=== PATIENT | male | born 1965 | race Caucasian/White ===

== ENCOUNTER → 2022-02-15 09:22 | Outpatient (BNVA) | payer OTHER, SELFPAY | PROVIDERS: Family Provider Physician Assistant Medical; PCP Family Medicine; Referring Provider Registered Nurse; Visit Provider Podiatrist Foot & Ankle Surgery | DX: M72.2 Plantar fascial fibromatosis (principal) | CPT/HCPCS: 73630 ==

== ENCOUNTER 2024-03-05 11:47 | Outpatient (CLI) | payer OTHER, SELFPAY ==
--- NOTE | 2024-03-05 11:50 | US_ITS ---
WS: [id number] ULTRASOUND RIGHT BREAST HISTORY: HISTROY OF MELANOMA COMPARISON: None available. TECHNIQUE: 2-D and Doppler. Ultrasound directed over the RIGHT breast as indicated by the patient in multiple areas. There are no masses identified. No distortion or fluid. US/US breast RT limited* [id number] IMPRESSION: BI-RADS: 1 - Negative. FOLLOW-UP: See Report No additional imaging necessary.
== END 2024-03-05 11:48 | disposition home or self-care (01) ==
LOC: RAD 11:48
PROVIDERS: Family Provider Physician Assistant Medical; PCP Family Medicine; Visit Provider Registered Nurse
DX: N64.4 Mastodynia (principal); Z85.820 Personal history of malignant melanoma of skin
CPT/HCPCS: 76642

== ENCOUNTER → 2024-03-13 12:38 | Outpatient (BNVA) | payer OTHER, SELFPAY | PROVIDERS: Family Provider Physician Assistant Medical; PCP Family Medicine; Visit Provider Orthopaedic Surgery | DX: M54.2 Cervicalgia (principal) | CPT/HCPCS: 72050 ==

== ENCOUNTER 2024-03-27 08:38 | Outpatient (RCR) | payer OTHER, SELFPAY | END 2024-03-29 23:59 | disposition home or self-care (01) | LOC: SPT 08:38 | PROVIDERS: Visit Provider Orthopaedic Surgery | DX: M54.2 Cervicalgia (principal); G89.29 Other chronic pain | CPT/HCPCS: 97161 ==

== ENCOUNTER 2024-03-30 06:00 | Outpatient (RCR) | payer OTHER, SELFPAY | END 2024-04-28 23:59 | disposition home or self-care (01) | LOC: SPT 06:00 | PROVIDERS: Visit Provider Orthopaedic Surgery | DX: M54.2 Cervicalgia (principal); G89.29 Other chronic pain | CPT/HCPCS: 97110 ==

== ENCOUNTER 2024-04-29 06:00 | Outpatient (RCR) | payer OTHER, SELFPAY | END 2024-05-29 23:59 | disposition home or self-care (01) | LOC: SPT 06:00 | PROVIDERS: Visit Provider Orthopaedic Surgery | DX: M54.2 Cervicalgia (principal); G89.29 Other chronic pain | CPT/HCPCS: 97110 ==